=== PATIENT | female | born 1980 | race Caucasian/White ===

== ENCOUNTER 2018-06-03 07:01 | Emergency (ER) | payer BC, SELFPAY ==
[2018-06-03 07:10] VITALS: BP 112/71; PULSE 75; RESP 16; TEMP 37; O2SAT 100
--- NOTE | 2018-06-03 08:17 | W.ED.GENAD ---
Discharge Plan Disposition Patient Disposition: HOME Discharge Details Chief Complaint: DentalOral Clinical Impression: Pain, dental Primary Care Provider: Sultana Oviedo ED Provider: Gerson Porter Home Meds and New Rx's Prescriptions: New penicillin V potassium 500 mg tablet 500 mg PO QID Qty: 27 RF: 0 Continue cholecalciferol (vitamin D3) 2,000 UNIT tablet 4,000 unit PO DAILY RF: 0 syringe with cannula,disposabl [BD Blunt Plastic Cannula] 1 EACH syringe 1 ea Miscellaneous q2wk Qty: 8 RF: 3 rituximab [Rituxan] 10 MG/1 ML concentrate 10 mg IV DIRECTED RF: 0 cyanocobalamin (vitamin B-12) 1,000 MCG/1 ML solution 1,000 mcg IJ twice a month Qty: 6 RF: 3 escitalopram oxalate [Lexapro] 20 MG tablet 20 mg PO DAILY Qty: 90 RF: 3 ferrous sulfate [iron] 325 MG tablet 325 mg PO DAILY RF: 0 multivitamin 1 EACH tablet 1 tab PO DAILY RF: 0 Discharge Instructions Instructions: Toothache (ED) Additional Instructions: Please take antibiotic as prescribed. Tylenol 650 mg every 6 hours as needed for pain. Take ibuprofen 600 mg every 6 hours as needed for pain. Please follow-up with your dentist. Return to the ER for any worsening or new concerning symptoms. Medical Decision Making 37-year-old female here with right molar dental pain. No signs of abscess. Plan to treat with penicillin. I offered periapical dental block and patient declined. I advised her to take Tylenol and ibuprofen and discussed dosing with her. I encouraged her to follow-up with her dentist. HPI General Mode of arrival: ambulatory. Date/Time Provider Initiated Documentation: 06/03/18 07:59. Limitations to Documentation: no limitations. Information obtained by: patient. HPI Narrative: 37-year-old female here with toothache. Patient notes that she had some discomfort in her right lower tooth approximately 2 weeks ago and was seen by her dentist who performed a minor procedure on the tooth. She notes that it was doing well and that yesterday she developed a throbbing ache in the tooth. Pain was severe last night. Pain improved now. She did take ibuprofen. No associated fever or facial swelling. Related Data Home Medications Medication Instructions Recorded Confirmed ferrous sulfate [iron] 325 mg PO DAILY 04/07/17 06/03/18 multivitamin 1 tab PO DAILY 04/07/17 06/03/18 cholecalciferol (vitamin D3) 4,000 unit PO DAILY 07/15/17 06/03/18 syringe with cannula,disposabl [BD #8 syringe 09/02/17 Blunt Plastic Cannula] cyanocobalamin (vitamin B-12) 1,000 mcg IJ twice a month #6 vial 09/03/17 06/03/18 escitalopram oxalate [Lexapro] 20 mg PO DAILY #90 tab-cap 09/03/17 06/03/18 rituximab [Rituxan] 10 mg IV DIRECTED vial 09/03/17 penicillin V potassium 500 mg PO QID #27 tab 06/03/18 Previous Rx's Medication Instructions Recorded cyanocobalamin (vitamin B-12) 1,000 mcg IJ twice a month #6 vial 09/03/17 escitalopram oxalate [Lexapro] 20 mg PO DAILY #90 tab-cap 09/03/17 penicillin V potassium 500 mg PO QID #27 tab 06/03/18 Allergies Allergy/AdvReac Type Severity Reaction Status Date / Time metronidazole [From Flagyl] Allergy Unknown Unverified 06/03/18 07:14 General Stated Complaint: DentalOral JUSTUS: 4 Review of Systems Constitutional Denies fever(s) ENT Reports as per HPI PFSH Family History Sister MS (multiple sclerosis) Mother Essential hypertension H/O partial thyroidectomy Maternal Grandmother Neoplasm Father Arthritis Medical History MS (multiple sclerosis) Social History Smoking/Tobacco Use Status: Never Surgical History section Ligation of fallopian tube (03/01/08) Exam HENMT Face and sinus: normal facial exam Mouth: oral mucosae normal, tongue normal, oropharynx normal and moist mucous membranes Teeth and gingiva: other (Right lower molar with intact filling, no swelling along the gumline, no signs of inflammation) Throat: posterior oropharynx normal Cardio Rate: regular rate Rhythm: regular rhythm Heart Sounds: no murmurs Course Vital Signs Temperature 37 C 06/03/18 07:10 Pulse 75 06/03/18 07:10 Respiratory Rate 16 06/03/18 07:10 Blood Pressure 112/71 06/03/18 07:10 Pulse Oximetry 100 06/03/18 07:10 Temperature 37 C 06/03/18 07:10 Temperature Source Skin 06/03/18 07:10 Pulse 75 06/03/18 07:10 Respiratory Rate 16 06/03/18 07:10 Respiratory Effort 06/03/18 07:12 Blood Pressure 112/71 06/03/18 07:10 Blood Pressure Position Sitting 06/03/18 07:10 Pulse Oximetry 100 06/03/18 07:10 Oxygen Delivery Method Room Air 06/03/18 07:10 Oxygen Flow Rate 0 06/03/18 07:10 Pain Level 7 06/03/18 07:10
[2018-06-03] MEDS: Penicillin V POTASSIUM 500 MG TAB PO (08:21)
[2018-06-03] MEDS: Acetaminophen 325 MG TAB 650 MG PO (08:21)
--- NOTE | 2018-06-03 08:24 | ED.GENADUL_ITS ---
Discharge Plan Disposition Patient Disposition: HOME Discharge Details Chief Complaint: DentalOral Clinical Impression: Pain, dental Primary Care Provider: Sultana Ovideo ED Provider: Gerson Porter Home Meds and New Rx's Prescriptions: New penicillin V potassium 500 mg tablet 500 mg PO QID Qty: 27 RF: 0 Continue cholecalciferol (vitamin D3) 2,000 UNIT tablet 4,000 unit PO DAILY RF: 0 syringe with cannula,disposabl [BD Blunt Plastic Cannula] 1 EACH syringe 1 ea Miscellaneous q2wk Qty: 8 RF: 3 rituximab [Rituxan] 10 MG/1 ML concentrate 10 mg IV DIRECTED RF: 0 cyanocobalamin (vitamin B-12) 1,000 MCG/1 ML solution 1,000 mcg IJ twice a month Qty: 6 RF: 3 escitalopram oxalate [Lexapro] 20 MG tablet 20 mg PO DAILY Qty: 90 RF: 3 ferrous sulfate [iron] 325 MG tablet 325 mg PO DAILY RF: 0 multivitamin 1 EACH tablet 1 tab PO DAILY RF: 0 Discharge Instructions Instructions: Toothache (ED) Additional Instructions: Please take antibiotic as prescribed. Tylenol 650 mg every 6 hours as needed for pain. Take ibuprofen 600 mg every 6 hours as needed for pain. Please follow-up with your dentist. Return to the ER for any worsening or new concerning symptoms. Medical Decision Making 37-year-old female here with right molar dental pain. No signs of abscess. Plan to treat with penicillin. I offered periapical dental block and patient declined. I advised her to take Tylenol and ibuprofen and discussed dosing with her. I encouraged her to follow-up with her dentist. HPI General Mode of arrival: ambulatory . Date/Time Provider Initiated Documentation: 06/03/18 07:59 . Limitations to Documentation: no limitations . Information obtained by: patient . HPI Narrative: 37-year-old female here with toothache. Patient notes that she had some discomfort in her right lower tooth approximately 2 weeks ago and was seen by her dentist who performed a minor procedure on the tooth. She notes that it was doing well and that yesterday she developed a throbbing ache in the tooth. Pain was severe last night. Pain improved now. She did take ibuprofen. No associated fever or facial swelling. Related Data Home Medications Medication Instructions Recorded Confirmed ferrous sulfate [iron] 325 mg PO DAILY 04/07/17 06/03/18 multivitamin 1 tab PO DAILY 04/07/17 06/03/18 cholecalciferol (vitamin D3) 4,000 unit PO DAILY 07/15/17 06/03/18 syringe with cannula,disposabl [BD #8 syringe 09/02/17 Blunt Plastic Cannula] cyanocobalamin (vitamin B-12) 1,000 mcg IJ twice a month #6 vial 09/03/17 escitalopram oxalate [Lexapro] 20 mg PO DAILY #90 tab-cap 09/03/17 06/03/18 rituximab [Rituxan] 10 mg IV DIRECTED vial 09/03/17 penicillin V potassium 500 mg PO QID #27 tab 06/03/18 Previous Rx's Medication Instructions Recorded cyanocobalamin (vitamin B-12) 1,000 mcg IJ twice a month #6 vial 09/03/17 escitalopram oxalate [Lexapro] 20 mg PO DAILY #90 tab-cap 09/03/17 penicillin V potassium 500 mg PO QID #27 tab 06/03/18 Allergies Allergy/AdvReac Type Severity Reaction Status Date / Time metronidazole [From Flagyl] Allergy Unknown Unverified 06/03/18 07:14 General Stated Complaint: DentalOral JUSTUS: 4 Review of Systems Constitutional Denies fever(s) ENT Reports as per HPI PFSH Family History Sister MS (multiple sclerosis) Mother Essential hypertension H/O partial thyroidectomy Maternal Grandmother Neoplasm Father Arthritis Medical History MS (multiple sclerosis) Social History Smoking/Tobacco Use Status: Never Surgical History section Ligation of fallopian tube (03/01/08) Exam HENMT Face and sinus: normal facial exam Mouth: oral mucosae normal, tongue normal, oropharynx normal and moist mucous membranes Teeth and gingiva: other (Right lower molar with intact filling, no swelling along the gumline, no signs of inflammation) Throat: posterior oropharynx normal Cardio Rate: regular rate Rhythm: regular rhythm Heart Sounds: no murmurs Course Vital Signs Temperature 37 C 06/03/18 07:10 Pulse 75 06/03/18 07:10 Respiratory Rate 16 06/03/18 07:10 Blood Pressure 112/71 06/03/18 07:10 Pulse Oximetry 100 06/03/18 07:10 Temperature 37 C 06/03/18 07:10 Temperature Source Skin 06/03/18 07:10 Pulse 75 06/03/18 07:10 Respiratory Rate 16 06/03/18 07:10 Respiratory Effort 06/03/18 07:12 Blood Pressure 112/71 06/03/18 07:10 Blood Pressure Position Sitting 06/03/18 07:10 Pulse Oximetry 100 06/03/18 07:10 Oxygen Delivery Method Room Air 06/03/18 07:10 Oxygen Flow Rate 0 06/03/18 07:10 Pain Level 7 06/03/18 07:10
[2018-06-03 08:27] VITALS: BP 114/71; PULSE 72; RESP 16; TEMP 37; O2SAT 99
== END 2018-06-03 08:28 | disposition home or self-care (01) ==
PROVIDERS: Emergency Provider Student in an Organized Health Care Education/Training Program; PCP Nurse Practitioner
DX: R68.84 Jaw pain (principal); G35 Multiple sclerosis
CPT/HCPCS: 99283

== ENCOUNTER 2018-06-05 01:23 | Outpatient (RCR) | payer BC, SELFPAY ==
[2018-06-05] MEDS: Acetaminophen 325 MG TAB 650 MG PO (07:16)
[2018-06-05] MEDS: Dexamethasone 10 MG/ML VIAL IVP (07:17)
[2018-06-05] MEDS: diphenhydrAMINE 50 MG/ML VIAL IV (07:17)
[2018-06-05 07:50] VITALS: BP 130/80; PULSE 81; RESP 18; TEMP 36.3; O2SAT 97
[2018-06-05] MEDS: Normal Saline Flush 10 ML SYR IVP (07:50)
[2018-06-05 08:30] VITALS: BP 106/69; PULSE 73; RESP 18; TEMP 36.5; O2SAT 98
[2018-06-05 09:00] VITALS: BP 110/78; PULSE 75; RESP 18; TEMP 36.3; O2SAT 98
[2018-06-05 09:45] VITALS: BP 99/67; PULSE 58; RESP 18; TEMP 36.5; O2SAT 99
[2018-06-05 10:26] VITALS: BP 102/72; PULSE 67; RESP 18; TEMP 36.1; O2SAT 97
== END 2018-06-10 23:59 | disposition home or self-care (01) ==
LOC: INF 01:23
PROVIDERS: PCP Nurse Practitioner; Visit Provider Psychiatry & Neurology Neurology
DX: G35 Multiple sclerosis (principal); Z79.899 Other long term (current) drug therapy
CPT/HCPCS: 96365; 96366; J1100; J1200; J9310

== ENCOUNTER 2018-07-30 01:15 | Outpatient (CLI) | payer BC, SELFPAY ==
[2018-07-30 08:02] LABS: Abs Immature Grans 0.01 k/cumm (0.0-0.09); Absolute Basophil Count 0.04 k/cumm (0.0-0.2); Absolute Eosinophil Count 0.16 k/cumm (0.0-0.7); Absolute Lymphocyte Count 0.98 k/cumm (1.2-3.4); Absolute Monocyte Count 0.62 k/cumm (0.11-0.7); Absolute Neutrophil Count 3.96 k/cumm (1.2-6.7); Basophils % 0.7; Eosinophils % 2.8; HCT 40.4 % (36.0-46.0); HGB 13.6 g/dL (12.0-15.5); Immature Grans % 0.2; Mean Corp. HGB Concentration 33.7 g/dL (32.0-36.0); Mean Corpuscular Hemoglobin 30.2 pg (27.0-33.0); Mean Corpuscular Volume 89.6 fL (80-95); Mean Platelet Volume 9.1 fL (8.0-11.0); Monocytes % 10.7; Neutrophils % 68.6; Platelet Count 249 x1000/uL (130-400); RBC 4.51 m/cumm (4.00-5.20); RBC Distribution Width 13.1 % (11.7-14.6); White Blood Cell Count 5.77 k/cumm (4.4-10.8)
[2018-07-30] MEDS: Gadoterate meglumine 20 ML VIAL 12 ML IVP (09:12)
[2018-07-30 09:32] LABS: ALT 23 U/L (12-78); AST 17 U/L (15-37); Alkaline Phosphatase 45 U/L (46-116); Bilirubin, Direct 0.18 mg/dL (0.00-0.20); Bilirubin, Total 0.6 mg/dL (0.2-1.0); Total Protein 7.1 g/dL (6.4-8.2)
--- NOTE | 2018-07-30 09:39 | DI.MRI_ITS ---
SYMPTOM/DIAGNOSIS: MULTIPLE SCLEROSIS, G35, SERIAL EVAL FOR INTERVAL NEW LESIONS BRAIN MRI: The study was conducted according to the usual protocol. The examination is compared with previous examination of 05/22/2017. Again noted are the numerable regions of increased signal in the frontal parietal white matter. No new lesions are identified. No regions of contrast enhancement are suggested. There is no evidence of an intra or extra axial hemorrhage, mass, fluid collection or infarct. The ventricles are intact. The midline is preserved. No posterior fossa abnormality is demonstrated. SUMMARY: No significant interval change when compared with the prior examination of 05/22/2017 with no new lesions identified. No active lesions are demonstrated on today's examination.
--- NOTE | 2018-07-30 09:40 | DI.MRI_ITS ---
SYMPTOM/DIAGNOSIS: MULTIPLE SCLEROSIS G35, SERIAL EVAL FOR INTERVAL NEW LESIONS MRI CERVICAL SPINE: A without and with contrast enhanced examination was carried out according to the usual protocol for work up of multiple sclerosis. Note is made of straightening of the normal cervical lordosis. There is increased signal in the body of C7 which could represent an hemangioma or conceivably a fatty arrest. There is otherwise no bony signal abnormality. There are numerous regions of increased signal involving the cervical spine at the level of T1, C2 through T2. These regions are certainly consistent with a demyelinating process. The contrast enhanced examination does not reveal contrast enhancement at the level of the abnormalities in the cord. Note is made of degenerative change throughout the C-spine most advanced at C5, C6 and C6 C7 where there is posterior spurring and what appears to represent a right central disc herniation at C6-C7. There is no evidence of foraminal compromise. There are degenerative changes involving the facet joints. Also at C5, C6 there is a small central disc protrusion with effacement of the subarachnoid space anterior to the cord. There is no apparent significant foraminal stenosis at this level. SUMMARY: Findings entirely consistent with a demyelinating process and multiple sclerosis. No enhancing lesion or lesions are demonstrated. There are degenerative changes involving the spine most notably at C5, C6 and C6, C7. In addition, there is increased signal in the body of C7 most likely representing an hemangioma.
[2018-07-31 09:53] LABS: IgG 1083 mg/dL (610-1616)
[2018-07-31 10:00] LABS: IgA 134 mg/dL (85-499); IgM 103 mg/dL (35-242)
[2018-07-31 12:58] LABS: CD19 <1 %; CD20 <1 %
== END 2018-07-30 01:35 ==
PROVIDERS: PCP Nurse Practitioner; Visit Provider Psychiatry & Neurology Neurology
DX: G35 Multiple sclerosis (principal); M50.322 Other cervical disc degeneration at C5-C6 level; M50.223 Other cervical disc displacement at C6-C7 level
CPT/HCPCS: 36415; 70553; 80076; 82784; 88184; 88185; 72156; 85025

== ENCOUNTER 2018-10-09 09:36 | Outpatient (CLI) | payer BC, SELFPAY ==
[2018-10-09 11:37] LABS: Vitamin B12 1151 pg/mL (193-986)
== END 2018-10-09 09:56 ==
PROVIDERS: PCP Nurse Practitioner; Visit Provider Nurse Practitioner
DX: E53.8 Deficiency of other specified B group vitamins (principal)
CPT/HCPCS: 36415; 82607

== ENCOUNTER 2018-11-10 12:10 | Outpatient (CLI) | payer BC, SELFPAY ==
[2018-11-10 12:43] LABS: Abs Immature Grans 0.01 k/cumm (0.0-0.09); Absolute Basophil Count 0.04 k/cumm (0.0-0.2); Absolute Lymphocyte Count 1.08 k/cumm (1.2-3.4); Absolute Monocyte Count 0.52 k/cumm (0.11-0.7); Absolute Neutrophil Count 3.25 k/cumm (1.2-6.7); Basophils % 0.8; HCT 38.2 % (36.0-46.0); HGB 12.7 g/dL (12.0-15.5); Immature Grans % 0.2; Lymphocytes % 21.6; Mean Corp. HGB Concentration 33.2 g/dL (32.0-36.0); Mean Corpuscular Hemoglobin 29.9 pg (27.0-33.0); Mean Corpuscular Volume 89.9 fL (80-95); Mean Platelet Volume 9.6 fL (8.0-11.0); Monocytes % 10.4; Platelet Count 215 x1000/uL (130-400); RBC 4.25 m/cumm (4.00-5.20); RBC Distribution Width 12.8 % (11.7-14.6)
[2018-11-10 13:14] LABS: Bilirubin Negative (Negative); Blood Negative (Negative); Clarity Sl Cloudy; Glucose Negative (Negative); Ketones Negative (Negative); Leukocyte Esterase Negative (Negative); Nitrite Negative (Negative)
[2018-11-10 15:04] LABS: ALT 28 U/L (12-78); AST 22 U/L (15-37); Albumin 3.9 g/dL (3.4-5.0); Alkaline Phosphatase 54 U/L (46-116); Bilirubin, Total 0.4 mg/dL (0.2-1.0); Total Protein 6.9 g/dL (6.4-8.2)
[2018-11-10 15:29] LABS: Bilirubin, Direct 0.13 mg/dL (0.00-0.20)
[2018-11-11 10:25] LABS: IgA 123 mg/dL (85-499); IgG 1010 mg/dL (610-1616); IgM 87 mg/dL (35-242)
[2018-11-12 11:56] LABS: CD19 <1 %; CD20 <1 %
== END 2018-11-10 12:30 ==
PROVIDERS: PCP Nurse Practitioner; Visit Provider Psychiatry & Neurology Neurology
DX: G35 Multiple sclerosis (principal)
CPT/HCPCS: 36415; 80076; 82784; 88184; 88185; 81003; 85025

== ENCOUNTER 2018-11-11 04:17 | Outpatient (RCR) | payer BC, SELFPAY ==
[2018-11-11 07:35] VITALS: BP 100/52; PULSE 65; RESP 18; TEMP 36.6; O2SAT 98
[2018-11-11] MEDS: diphenhydrAMINE 50 MG/ML VIAL IV (07:36)
[2018-11-11] MEDS: Dexamethasone 10 MG/ML VIAL IVP (07:37)
[2018-11-11] MEDS: Normal Saline Flush 10 ML SYR IVP (07:38)
[2018-11-11] MEDS: Acetaminophen 325 MG TAB 650 MG PO (07:38)
[2018-11-11 08:04] VITALS: BP 112/76; PULSE 95; RESP 16; TEMP 36.6; O2SAT 100
[2018-11-11 08:20] VITALS: BP 102/68; PULSE 92; RESP 18; TEMP 37; O2SAT 100
[2018-11-11 08:41] VITALS: BP 97/62; PULSE 90; RESP 18; TEMP 36.5; O2SAT 99
[2018-11-11 09:10] VITALS: BP 92/58; PULSE 84; RESP 18; TEMP 36.5; O2SAT 98
[2018-11-11 09:40] VITALS: BP 96/63; PULSE 77; RESP 18; TEMP 37; O2SAT 98
== END 2018-12-08 23:59 | disposition home or self-care (01) ==
LOC: INF 04:17
PROVIDERS: PCP Nurse Practitioner; Visit Provider Psychiatry & Neurology Neurology
DX: G35 Multiple sclerosis (principal)
CPT/HCPCS: 96365; 96366; J1100; J1200; J9312

== ENCOUNTER 2019-01-01 00:32 | Outpatient (CLI) | payer BC, SELFPAY ==
--- NOTE | 2019-01-01 07:50 | DI.MRI_ITS ---
SYMPTOM/DIAGNOSIS: DIFFICULTLY WALKING, MS, ? PROGRESSION, WORSENING BALANCE,G35 BRAIN MRI: Comparison is made with 07/30/18. T 2 and FLAIR sagittal, T 1, T 2, FLAIR, diffusion and gradient echo axial and post Dotarem T 1 axial and coronal sequences were performed. Again noted are numerous foci of abnormal high signal in the white matter of both cerebral hemispheres consistent with patient's history of multiple sclerosis. The appearance appears stable from the previous exam. No enhancing lesions are identified. There are no areas of restricted diffusion. The ventricles are unchanged in size. The orbits, sinuses, pituitary and mastoid air cells are unremarkable. IMPRESSION: Stable appearance of white matter lesions consistent with multiple sclerosis. CERVICAL SPINE MRI: Comparison is made with 07/30/18. T 1, T 2, STIR, FLAIR and T 2 3D sagittal, T 1 and gradient echo axial and post Dotarem T 1 axial and sagittal sequences were performed. The sagittal images include from the brain stem to T 5. There are innumerable abnormal areas of high signal throughout the visualized portions of the cervical cord as well as upper thoracic cord. No enhancing lesions are identified. Straightening of the normal cervical lordosis and posterior disc bulges are again noted from C 3-4 through C 6-7. A hemangioma is again noted in C 7. IMPRESSION: Stable appearance of numerous abnormal high signal foci in the cervical cord consistent with the patient's history of multiple sclerosis. No enhancing lesions are seen.
[2019-01-01] MEDS: Normal Saline Flush 10 ML SYR IVP (09:06)
[2019-01-01] MEDS: Gadoterate meglumine 20 ML VIAL 11 ML IVP (09:07)
== END 2019-01-01 00:52 ==
PROVIDERS: PCP Nurse Practitioner; Visit Provider Psychiatry & Neurology Neurology
DX: G35 Multiple sclerosis (principal); R26.2 Difficulty in walking, not elsewhere classified
CPT/HCPCS: 70553; 72156

== ENCOUNTER 2019-04-29 15:17 | Outpatient (CLI) | payer BC, SELFPAY ==
[2019-04-29 15:54] LABS: Absolute Basophil Count 0.04 k/cumm (0.0-0.2); Absolute Eosinophil Count 0.06 k/cumm (0.0-0.7); Absolute Lymphocyte Count 1.24 k/cumm (1.2-3.4); Absolute Monocyte Count 0.49 k/cumm (0.11-0.7); Basophils % 0.7; Eosinophils % 1.1; HCT 37.3 % (36.0-46.0); HGB 12.4 g/dL (12.0-15.5); Lymphocytes % 22.8; Mean Corp. HGB Concentration 33.2 g/dL (32.0-36.0); Mean Corpuscular Hemoglobin 29.2 pg (27.0-33.0); Neutrophils % 66.4; Platelet Count 287 x1000/uL (130-400); RBC 4.24 m/cumm (4.00-5.20); RBC Distribution Width 12.6 % (11.7-14.6); White Blood Cell Count 5.43 k/cumm (4.4-10.8)
[2019-04-29 16:23] LABS: Bilirubin Small (Negative); Blood Negative (Negative); Clarity Clear (Clear); Glucose Negative (Negative); Ketones 15 mg/dL (Negative); Leukocyte Esterase Negative (Negative); Nitrite Negative (Negative); Specific Gravity 1.025 (1.005-1.025); Urobilinogen 0.2 EU/dL (Up TO 0.2)
[2019-04-29 16:37] LABS: ALT 17 U/L (14-59); AST 16 U/L (15-37); Alkaline Phosphatase 51 U/L (46-116); Bilirubin, Direct 0.14 mg/dL (0.00-0.20); Bilirubin, Total 0.6 mg/dL (0.2-1.0); Total Protein 6.9 g/dL (6.4-8.2)
[2019-04-29 17:01] LABS: Epithelial Cells Moderate HPF (Negative); RBC Negative (0-2); WBC Negative HPF (0-5)
[2019-04-29 17:02] LABS: Bacteria Few HPF (Negative); C & S Indicated? No/Sq. Contamination; Casts Negative LPF (Negative); Crystals Negative HPF (Negative); Mucus Heavy (Negative); Other Cells Negative (Negative)
[2019-04-30 11:05] LABS: IgA 127 mg/dL (85-499); IgG 988 mg/dL (610-1616); IgM 22 mg/dL (35-242)
[2019-05-03 14:35] LABS: CD19 <1 %; CD20 <1 %
== END 2019-04-29 15:37 ==
PROVIDERS: PCP Nurse Practitioner; Visit Provider Psychiatry & Neurology Neurology
DX: G35 Multiple sclerosis (principal)
CPT/HCPCS: 36415; 80076; 82784; 88184; 88185; 81003; 81015; 85025

== ENCOUNTER 2019-05-17 02:02 | Outpatient (RCR) | payer BC, SELFPAY ==
[2019-05-17] VITALS (9 sets, daily range): BP systolic 90–110; BP diastolic 59–77; PULSE 71–96; RESP 17–19; TEMP 35.9–36.7; O2SAT 99–100
[2019-05-17] MEDS: Normal Saline Flush 10 ML SYR IVP (07:05)
[2019-05-17] MEDS: methylPREDNISolone SUCC 125 MG VIAL 100 MG IV (07:05)
[2019-05-17] MEDS: Acetaminophen 325 MG TAB 650 MG PO (07:05)
[2019-05-17] MEDS: diphenhydrAMINE 50 MG/ML VIAL IV (07:05)
== END 2019-06-10 23:59 | disposition home or self-care (01) ==
LOC: INF 02:02
PROVIDERS: PCP Nurse Practitioner; Visit Provider Psychiatry & Neurology Neurology
DX: G35 Multiple sclerosis (principal)
CPT/HCPCS: 96365; 96366; 96374; J1200; J2930; J9312

== ENCOUNTER 2019-08-06 10:49 | Outpatient (CLI) | payer BC, SELFPAY ==
--- NOTE | 2019-08-20 10:56 | DI.US_ITS ---
EXAM: US BREAST RT COMPLETE CLINICAL HISTORY: right breast lump [id number] TECHNIQUE: Ultrasound performed using standard protocol. COMPARISON: No exams were available for comparison FINDINGS: Ultrasound examination of breast was performed to evaluate the palpable area of abnormality of the up per outer quadrant of the right breast, the patient reportedly has history of trauma this area. Ultr asound shows a poorly defined area decreased echogenicity corresponding to the palpable abnormality. This measures roughly 1 cm in greatest diameter. Findings are consistent with resolving hematoma. No abnormal Doppler findings. IMPRESSION: Findings consistent with resolving hematoma in patient with history of trauma to this area. Malignan t mass not absolutely excluded follow-up imaging may be obtained if clinically indicated by an enlarg ing mass.
== END 2019-08-06 11:09 ==
PROVIDERS: PCP Nurse Practitioner; Visit Provider Internal Medicine
DX: N63.11 Unspecified lump in the right breast, upper outer quadrant (principal); S20.01XD Contusion of right breast, subsequent encounter
CPT/HCPCS: 76642

== ENCOUNTER 2019-08-20 18:32 | Outpatient (CLI) | payer BC, SELFPAY | END 2019-08-20 18:52 | PROVIDERS: PCP Nurse Practitioner; Visit Provider Internal Medicine | DX: R69 Illness, unspecified (principal) | CPT/HCPCS: 76642 ==

== ENCOUNTER 2019-10-04 14:03 | Outpatient (REF) | payer BC, SELFPAY ==
--- NOTE | 2019-10-04 09:00 | PAPFT_PTH ---
PATIENT: Gay Montiel LOC: [facility] U#:[id number] AGE/SX: 38/F ROOM: RE10/04/[address]: Sultana Oviedo APRN : 1980 BED: DIS: 10/04/2019 SPEC #: [id number] RECD: 10/04/19 18:44 STATUS: RIVKA REShen #: [id number] MERLINE: 10/04/19 09:[address]: Sultana Oviedo DEPT: [facility] Cytology RECD BY: Frances Hernandez Tissues: 1 - CX/ENDOCX FOR PAP SMEARS Procedures: PAP THIN PREP/UVM Screening HPV DNA PROBE Comments: [id number]
== END 2019-10-04 14:23 ==
LOC: LBN 14:03
PROVIDERS: PCP Nurse Practitioner; Visit Provider Nurse Practitioner
DX: Z12.4 Encounter for screening for malignant neoplasm of cervix (principal)
CPT/HCPCS: 88142; 87624

== ENCOUNTER 2019-10-26 02:19 | Outpatient (CLI) | payer BC, SELFPAY ==
[2019-10-26 11:05] LABS: Absolute Basophil Count 0.03 k/cumm (0.0-0.2); Absolute Eosinophil Count 0.12 k/cumm (0.0-0.7); Absolute Lymphocyte Count 0.81 k/cumm (1.2-3.4); Absolute Neutrophil Count 2.12 k/cumm (1.2-6.7); Basophils % 0.8; Eosinophils % 3.4; HCT 40.1 % (36.0-46.0); HGB 13.2 g/dL (12.0-15.5); Lymphocytes % 22.6; Mean Corp. HGB Concentration 32.9 g/dL (32.0-36.0); Mean Corpuscular Hemoglobin 29.4 pg (27.0-33.0); Mean Corpuscular Volume 89.3 fL (80-95); Mean Platelet Volume 10.5 fL (8.0-11.0); Neutrophils % 59.2; Platelet Count 233 x1000/uL (130-400); RBC 4.49 m/cumm (4.00-5.20); RBC Distribution Width 13.4 % (11.7-14.6); White Blood Cell Count 3.58 k/cumm (4.4-10.8)
[2019-10-26 11:47] LABS: ALT 17 U/L (14-59); AST 16 U/L (15-37); Albumin 3.9 g/dL (3.4-5.0); Alkaline Phosphatase 40 U/L (46-116); Anion Gap 7.6 mmol/L (3-11); BUN 11 mg/dL (7-18); Bilirubin, Total 0.6 mg/dL (0.2-1.0); CO2 29.4 mmol/L (21.0-32.0); CREATININE 0.69 mg/dL (0.55-1.02); Calcium 8.7 mg/dL (8.5-10.1); Chloride 104 mmol/L (98-107); Glucose 79 mg/dL (74-106); Potassium 3.9 mmol/L (3.5-5.1); Sodium 141 mmol/L (136-145); Total Protein 6.8 g/dL (6.4-8.2)
[2019-10-27 10:39] LABS: IgA 124 mg/dL (85-499); IgG 948 mg/dL (610-1,616); IgM 85 mg/dL (35-242)
[2019-10-27 14:43] LABS: CD19 <1 %; CD20 <1 %
== END 2019-10-26 02:39 ==
PROVIDERS: PCP Nurse Practitioner; Visit Provider Psychiatry & Neurology Neurology
DX: G35 Multiple sclerosis (principal)
CPT/HCPCS: 36415; 80053; 82784; 88184; 88185; 85025

== ENCOUNTER 2019-11-18 00:44 | Outpatient (CLI) | payer BC, SELFPAY ==
--- NOTE | 2019-11-18 06:30 | DI.MAMMO_ITS ---
EXAM: US BREAST RT LIMITED and bilateral mammogram CLINICAL HISTORY: RT BREAST LUMP HEMATOMA - TRAUMA 08/30. COMPARISON: US BREAST RT COMPLETE from 08/06/2019 TECHNIQUE: Craniocaudal and mediolateral oblique Full Field Digital Mammography views of the bilater al breast with Computer Aided Diagnosis followed by Tomosynthesis and right breast ultrasound. FINDINGS: Mammography/Tomosynthesis: Masses/Architectural Distortion: None seen. Microcalcifications: No suspicious pleomorphic-type are seen. Skin Thickening/Nipple Retraction: None. Right breast US: Ductal dilation: None. No solid or cystic masses, areas of abnormal shadowing, or areas of skin thickening in the upper righ t breast. There does appear to be interval decrease in size of the hypoechoic area in the right gail st consistent with resolving hematoma. There also appears to be a decrease in the skin thickening pr eviously seen in this region. IMPRESSION: 1. No evidence of malignancy is noted. Overall interval improvement in the presumed hematoma in the r ight breast. BI-RADS Cat 2 - Benign Findings Breast Density - Category C - Heterogeneously dense The mammogram demonstrates the patient's breast tissue is dense. Dense breast tissue is very common a nd is not abnormal but dense breast tissue can make it harder to find cancer on a mammogram. Also, de nse breast tissue may increase their breast cancer risk. This information about the result of the [facility] mogram report was provided to the patient to raise their awareness. Use this report when you speak wi th the patient about their risks for breast cancer, which includes their family history. At that time , you may recommend for more screening tests (Ultrasound or MRI) as they might be useful based on the ir risk. A negative radiographic report should not delay biopsy if a dominant or clinically suspicious mass is present. Up to ten percent of cancers are not identified on mammography. A negative report may reinforce clinical impression. Adenosis and dense breasts may obscure an underlying neoplasm. False positive reports average 6 to 10%. Patient will receive a letter notifying them of these results. Overall improving presumed hematoma in the right breast. No suspicious cystic or solid masses are se en sonographically.
== END 2019-11-18 01:04 ==
PROVIDERS: PCP Nurse Practitioner; Visit Provider Nurse Practitioner
DX: N63.11 Unspecified lump in the right breast, upper outer quadrant (principal); S20.01XD Contusion of right breast, subsequent encounter
CPT/HCPCS: 76642; 77062; 77066; G0279

== ENCOUNTER 2019-11-24 01:28 | Outpatient (RCR) | payer BC, SELFPAY ==
[2019-11-24] VITALS (8 sets, daily range): BP systolic 90–106; BP diastolic 67–76; PULSE 48–107; RESP 18–19; TEMP 35.9–36.7; O2SAT 93–100
[2019-11-24] MEDS: methylPREDNISolone SUCC 125 MG VIAL 100 MG IV (08:30)
[2019-11-24] MEDS: diphenhydrAMINE 50 MG/ML VIAL IV (08:31)
[2019-11-24] MEDS: Acetaminophen 325 MG TAB 650 MG PO (08:31)
[2019-11-24] MEDS: Normal Saline Flush 10 ML SYR IVP (08:31)
== END 2019-12-09 23:59 | disposition home or self-care (01) ==
LOC: INF 01:28
PROVIDERS: PCP Nurse Practitioner; Visit Provider Psychiatry & Neurology Neurology
DX: G35 Multiple sclerosis (principal)
CPT/HCPCS: 96365; 96366; J1200; J2930; J9312

== ENCOUNTER 2020-01-06 02:45 | Outpatient (CLI) | payer BC, SELFPAY ==
--- NOTE | 2020-01-06 08:45 | DI.MRI_ITS ---
EXAM: MR BRAIN WO/W CLINICAL HISTORY: MS.G35. TECHNIQUE: Multiplanar multisequence MRI of the brain was performed. CONTRAST MATERIAL: IV Contrast: 11 ML of Dotarem contrast administered. COMPARISON: MR MR brain wo/w from 01/01/2019 FINDINGS: VENTRICLES AND EXTRA AXIAL SPACES: Normal in size and morphology for the patient's age. HEMORRHAGE: None. CEREBRAL PARENCHYMA: There still of stable innumerable and nearly confluent areas of high signal on T 2 and FLAIR images in the white matter, consistent with the patient's history of multiple sclerosis. No focus of restricted diffusion to suggest acute infarct or active lesion. No space-occupying lesi on identified. MIDLINE SHIFT: None. BRAINSTEM/CEREBELLUM: Normal. CALVARIUM: Normal. ENHANCEMENT: No suspicious enhancement identified. VISUALIZED PARANASAL SINUSES/MASTOIDS: Clear. OTHER FINDINGS: None. IMPRESSION: Stable white matter lesions consistent with the patient's history of multiple sclerosis. No enhancin g lesions are identified.. DATA REPOSITORY:
--- NOTE | 2020-01-06 08:52 | DI.MRI_ITS ---
EXAM: MR CERVICAL SPINE WO/W CLINICAL HISTORY: MS; increased LLE spasticity,G35 TECHNIQUE: Multiplanar multisequence MRI of the cervical spine was performed without intravenous con trast. Additional T1 axial and sagittal sequences were performed following IV infusion of 100 millil iters Dotarem. COMPARISON: MR MR cervical spine wo/w from 01/01/2019 FINDINGS: BONES: Vertebral body heights are maintained. Alignment is normal. Overall bone marrow signal intensi ty is within normal limits. Hemangioma C7. CERVICAL CORD: Craniovertebral junction is unremarkable. Abnormal high signal is again noted througho ut the cervical cord the findings appear grossly unchanged from the previous exam.. No abnormal area s of enhancement are seen. Discs: The intervertebral discs are well maintained in height. There is stable mild posterior disc b ulging from C3-4 through C6-7. There is no focal disc herniation. There is some effacement of the a nterior CSF space at C6-7. There is no significant neural foraminal narrowing. SOFT TISSUES: Unremarkable. IMPRESSION: Grossly stable diffuse high signal throughout the cervical and upper thoracic cord. No enhancing les ions are seen.. DATA REPOSITORY:
[2020-01-06] MEDS: Normal Saline Flush 10 ML SYR IVP (15:04)
[2020-01-06] MEDS: Gadoterate meglumine 20 ML VIAL 11 ML IVP (15:05)
== END 2020-01-06 03:05 ==
PROVIDERS: PCP Nurse Practitioner; Visit Provider Psychiatry & Neurology Neurology
DX: G35 Multiple sclerosis (principal); M62.838 Other muscle spasm
CPT/HCPCS: 70553; 72156

== ENCOUNTER 2020-05-24 08:30 | Outpatient (RCR) | payer BC, SELFPAY ==
[2020-05-24] VITALS (8 sets, daily range): BP systolic 91–113; BP diastolic 59–81; PULSE 85–94; RESP 14–18; TEMP 36–36.6; O2SAT 98–100
[2020-05-24] MEDS: Acetaminophen 325 MG TAB 650 MG PO (08:42)
[2020-05-24] MEDS: methylPREDNISolone SUCC 125 MG VIAL 100 MG IV (08:43)
[2020-05-24] MEDS: diphenhydrAMINE 50 MG/ML VIAL IV (08:43)
[2020-05-24] MEDS: Normal Saline Flush 10 ML SYR IVP (08:44)
[2020-05-24] MEDS: riTUXimab-PVVR 1,000 MG in Normal Saline 150 ML 62.5 MG IVPB (08:55)
[2020-05-24 09:11] LABS: Absolute Eosinophil Count 0.09 10^3/uL (0.0-0.7); Absolute Lymphocyte Count 0.97 10^3/uL (1.2-3.4); Absolute Neutrophil Count 3.12 10^3/uL (1.2-6.7); Basophils % 0.8; Eosinophils % 1.9; HCT 37.4 % (36.0-46.0); HGB 12.1 g/dL (11.2-15.7); Immature Grans % 0.2; Lymphocytes % 20.5; MCH 28.8 pg (27.0-33.0); MCHC 32.4 % (32.0-36.0); MPV 10.2 fL (8.0-11.0); Monocytes % 10.6; Nucleated RBC 0 %; Platelet Count 314 10^3/uL (130-400); RDW 12.5 % (11.7-14.6); WBC 4.73 10^3/uL (4.4-10.8)
[2020-05-24 09:12] LABS: Abs Immature Grans 0.01 10^3/uL (0.0-0.06); Absolute Basophil Count 0.04 10^3/uL (0.0-0.2)
[2020-05-24 10:00] LABS: ALT 13 U/L (14-59); AST 15 U/L (15-37); Albumin 3.8 g/dL (3.4-5.0); Alkaline Phosphatase 39 U/L (46-116); Bilirubin, Direct 0.16 mg/dL (0.00-0.20); Bilirubin, Total 0.6 mg/dL (0.2-1.0); Total Protein 6.8 g/dL (6.4-8.2)
[2020-05-25 09:10] LABS: IgA 118 mg/dL (85-499); IgG 989 mg/dL (610-1,616); IgM 83 mg/dL (35-242)
[2020-05-25 17:27] LABS: CD19 <1 %; CD20 <1 %
== END 2020-06-10 23:59 | disposition home or self-care (01) ==
LOC: INF 08:30
PROVIDERS: PCP Nurse Practitioner; Visit Provider Psychiatry & Neurology Neurology
DX: G35 Multiple sclerosis (principal)
CPT/HCPCS: 36415; 80076; 82784; 88184; 88185; 96365; 96366; 85025; J1200; J2930; Q5119

== ENCOUNTER 2020-09-05 03:32 | Outpatient (CLI) | payer BC, SELFPAY ==
[2020-09-05 12:42] LABS: Bilirubin Negative (Negative); Blood Small (Negative); Clarity Sl Cloudy (Clear); Glucose Negative (Negative); Ketones Negative (Negative); Leukocyte Esterase Negative (Negative); Nitrite Negative (Negative); Specific Gravity >= 1.030 (1.005-1.025); Urobilinogen 0.2 EU/dL (Up TO 0.2)
[2020-09-05 13:05] LABS: Anion Gap 7.3 mmol/L (3-11); BUN 11 mg/dL (7-18); C-Reactive Protein < 0.05 mg/dL (0.0-0.3); CO2 28.7 mmol/L (21.0-32.0); Calcium 9.2 mg/dL (8.5-10.1); Chloride 101 mmol/L (98-107); Glucose 95 mg/dL (74-106); Potassium 3.9 mmol/L (3.5-5.1); Sodium 137 mmol/L (136-145)
[2020-09-05 13:13] LABS: Epithelial Cells Moderate HPF (Negative); RBC 0-2 HPF (0-2); WBC 0-2 HPF (0-5)
[2020-09-05 13:14] LABS: C & S Indicated? No/Sq. Contamination; Casts Negative LPF (Negative); Crystals Negative HPF (Negative); Mucus Moderate (Negative)
[2020-09-05 14:14] LABS: ESR 6 mm/hr (0-20)
== END 2020-09-05 03:52 ==
PROVIDERS: PCP Nurse Practitioner; Visit Provider Psychiatry & Neurology Neurology
DX: G35 Multiple sclerosis (principal)
CPT/HCPCS: 36415; 80048; 85652; 81003; 81015; 86140

== ENCOUNTER 2020-11-24 01:00 | Outpatient (CLI) | payer BC, SELFPAY ==
[2020-11-24 12:31] LABS: Abs Immature Grans 0.01 10^3/uL (0.0-0.06); Absolute Basophil Count 0.06 10^3/uL (0.0-0.2); Absolute Eosinophil Count 0.12 10^3/uL (0.0-0.7); Absolute Lymphocyte Count 1.02 10^3/uL (1.2-3.4); Absolute Monocyte Count 0.47 10^3/uL (0.1-0.8); Absolute Neutrophil Count 2.23 10^3/uL (1.2-6.7); Basophils % 1.5; Eosinophils % 3.1; HCT 37.6 % (36.0-46.0); Immature Grans % 0.3; Lymphocytes % 26.1; MCH 28.4 pg (27.0-33.0); MCHC 31.9 % (32.0-36.0); MCV 89.1 fL (80-95); MPV 10.3 fL (8.0-11.0); Nucleated RBC 0 %; Platelet Count 305 10^3/uL (130-400); RBC 4.22 10^6/uL (3.93-5.22); RDW 12.7 % (11.7-14.6); RDW-SD 41.1 fL; WBC 3.91 10^3/uL (4.4-10.8)
[2020-11-24 13:09] LABS: ALT 19 U/L (14-59); AST 17 U/L (15-37); Albumin 3.8 g/dL (3.4-5.0); Alkaline Phosphatase 49 U/L (46-116); Bilirubin, Total 0.4 mg/dL (0.2-1.0); Calculated LDL 104 mg/dL (<100); Cholesterol 185 mg/dL (<200); HDL Cholesterol 67 mg/dL (40-60); Total Protein 6.7 g/dL (6.4-8.2); Triglyceride 74 mg/dL (<150)
[2020-11-24 13:19] LABS: Bilirubin, Direct 0.1 mg/dL (0.0-0.2)
[2020-11-26 11:30] LABS: CD19 <1 %; CD20 <1 %
[2020-11-27 10:13] LABS: IgA 109 mg/dL (85-499); IgG 870 mg/dL (610-1,616); IgM 78 mg/dL (35-242)
== END 2020-11-24 01:01 | disposition home or self-care (01) ==
LOC: LOS 01:00
PROVIDERS: PCP Nurse Practitioner; Visit Provider Nurse Practitioner
DX: G35 Multiple sclerosis (principal); Z13.220 Encounter for screening for lipoid disorders
CPT/HCPCS: 36415; 80061; 80076; 82784; 88184; 88185; 85025

== ENCOUNTER 2021-05-08 03:56 | Outpatient (CLI) | payer BC, SELFPAY ==
[2021-05-08 08:47] LABS: Abs Immature Grans 0.01 10^3/uL (0.0-0.06); Absolute Basophil Count 0.05 10^3/uL (0.0-0.2); Absolute Eosinophil Count 0.14 10^3/uL (0.0-0.7); Absolute Monocyte Count 0.45 10^3/uL (0.1-0.8); Absolute Neutrophil Count 2.68 10^3/uL (1.2-6.7); Basophils % 1.1; Eosinophils % 3.2; HCT 37.9 % (36.0-46.0); HGB 11.8 g/dL (11.2-15.7); Immature Grans % 0.2; Lymphocytes % 24.8; MCH 27.3 pg (27.0-33.0); MCHC 31.1 % (32.0-36.0); MCV 87.5 fL (80-95); MPV 9.8 fL (8.0-11.0); Monocytes % 10.2; Neutrophils % 60.5; Nucleated RBC 0 %; Platelet Count 329 10^3/uL (130-400); RBC 4.33 10^6/uL (3.93-5.22); RDW 13.3 % (11.7-14.6); RDW-SD 42.5 fL; WBC 4.43 10^3/uL (4.4-10.8)
[2021-05-08 09:10] LABS: ALT 18 U/L (14-59); AST 14 U/L (15-37); Albumin 3.9 g/dL (3.4-5.0); Alkaline Phosphatase 45 U/L (46-116); Bilirubin, Direct 0.2 mg/dL (0.0-0.2); Bilirubin, Total 0.4 mg/dL (0.2-1.0); Total Protein 6.8 g/dL (6.4-8.2)
[2021-05-09 10:12] LABS: IgA 124 mg/dL (85-499); IgG 988 mg/dL (610-1,616); IgM 81 mg/dL (35-242)
== END 2021-05-08 03:57 | disposition home or self-care (01) ==
LOC: LBO 03:56
PROVIDERS: PCP Nurse Practitioner; Visit Provider Psychiatry & Neurology Neurology
DX: G35 Multiple sclerosis (principal)
CPT/HCPCS: 36415; 80076; 82784; 88184; 88185; 85025

== ENCOUNTER 2021-05-10 04:03 | Outpatient (CLI) | payer BC, SELFPAY ==
[2021-05-14 12:25] LABS: CD19 <1 % (6-24); CD20 <1 % (6-24)
== END 2021-05-10 04:04 | disposition home or self-care (01) ==
LOC: LBO 04:03
PROVIDERS: PCP Nurse Practitioner; Visit Provider Psychiatry & Neurology Neurology
DX: G35 Multiple sclerosis (principal)
CPT/HCPCS: 88184; 88185

== ENCOUNTER 2021-12-13 03:58 | Outpatient (CLI) | payer BC, SELFPAY ==
[2021-12-13 11:20] LABS: Abs Immature Grans 0.02 10^3/uL (0.0-0.06); Absolute Basophil Count 0.08 10^3/uL (0.0-0.2); Absolute Eosinophil Count 0.29 10^3/uL (0.0-0.7); Absolute Lymphocyte Count 1.02 10^3/uL (1.2-3.4); Absolute Monocyte Count 0.77 10^3/uL (0.1-0.8); Absolute Neutrophil Count 4.93 10^3/uL (1.2-6.7); Basophils % 1.1; Eosinophils % 4.1; HCT 37.6 % (36.0-46.0); HGB 11.6 g/dL (11.2-15.7); Immature Grans % 0.3; Lymphocytes % 14.3; MCH 25.2 pg (27.0-33.0); MCHC 30.9 % (32.0-36.0); MCV 82 fL (80-95); MPV 9.3 fL (8.0-11.0); Monocytes % 10.8; Neutrophils % 69.4; Platelet Count 264 10^3/uL (130-400); RDW 13.5 % (11.7-14.6); RDW-SD 40.2 fL; WBC 7.11 10^3/uL (4.4-10.8)
[2021-12-13 12:17] LABS: ALT 15 U/L (14-59); AST 17 U/L (15-37); Albumin 4.4 g/dL (3.4-5.0); Alkaline Phosphatase 56 U/L (46-116); Bilirubin, Direct 0.1 mg/dL (0.0-0.2); Bilirubin, Total 0.4 mg/dL (0.2-1.0); Total Protein 7.5 g/dL (6.4-8.2)
[2021-12-13 12:20] LABS: ALT 15 U/L (14-59); AST 14 U/L (15-37); Albumin 4.4 g/dL (3.4-5.0); Alkaline Phosphatase 55 U/L (46-116); Anion Gap 8.9 mmol/L (3-11); BUN 10 mg/dL (7-18); Bilirubin, Total 0.4 mg/dL (0.2-1.0); CO2 28.1 mmol/L (21.0-32.0); CREATININE 0.7 mg/dL (0.55-1.02); Calcium 8.9 mg/dL (8.5-10.1); Calculated LDL 115 mg/dL (<100); Chloride 102 mmol/L (98-107); Cholesterol 206 mg/dL (<200); Glucose 83 mg/dL (74-106); HDL Cholesterol 72 mg/dL (40-60); Potassium 3.8 mmol/L (3.5-5.1); Sodium 139 mmol/L (136-145); Total Protein 7.5 g/dL (6.4-8.2); Triglyceride 95 mg/dL (<150)
[2021-12-14 09:20] LABS: IgA 118 mg/dL (85-499); IgG 1011 mg/dL (610-1,616); IgM 87 mg/dL (35-242)
[2021-12-14 15:25] LABS: CD19 <1 % (6-24); CD20 <1 % (6-24)
== END 2021-12-13 03:59 | disposition home or self-care (01) ==
LOC: LBO 03:58
PROVIDERS: PCP Nurse Practitioner; Visit Provider Psychiatry & Neurology Neurology
DX: G35 Multiple sclerosis (principal); Z13.220 Encounter for screening for lipoid disorders
CPT/HCPCS: 36415; 80053; 80061; 80076; 82784; 88184; 88185; 85025

== ENCOUNTER → 2021-12-14 01:17 | Outpatient (CLI) | payer BC, SELFPAY ==
--- NOTE | 2021-12-14 07:45 | DI.MAMMO_ITS ---
Exam(s) MAMMO SCREENING EXAM: MAMMO SCREENING CLINICAL HISTORY: screening,Z12.39. TECHNIQUE: Bilateral full field digital CC and MLO mammographic images were obtained with 3D tomosyn thesis and utilizing computer aided detection (CAD). COMPARISON: Prior mammogram of November 2019 was reviewed. FINDINGS: There are no CAD designations There are no new significant radiograph findings in left breast. However, there is significant increase in abnormal asymmetric density in the superior aspect of the r ight breast, measuring approximately 5 by 4 by 6 cm. There are no malignant-appearing microcalcification groups in this region or elsewhere in either gail st. No new obvious architectural distortion skin thickening traction. IMPRESSION: 1. No radiographic evidence of malignancy in left breast. 2. Abnormal right breast findings with increasing size density superiorly as described above. Additi onal imaging is recommended including spot compression views and complete breast ultrasound. BI-RADS Category 0 - Assessment Incomplete: Need additional imaging evaluation Breast Density - Category C - Heterogeneously dense Breast density Category C or D implies that the patient has dense breast tissue. Dense breast tissue can make it harder to find cancer on a mammogram. Dense breast tissue is also associated with an incr eased risk of breast cancer. This information about the result of the mammogram report was provided to the patient to raise their awareness. Use this report when you speak with the patient about their risks for breast cancer, which includes their family history. At that time, you may recommend additional screening tests (Ultrasoun d or MRI) as these tests may add significant information. A negative radiographic report should not delay biopsy if a dominant or clinically suspicious mass is present. Up to ten percent of cancers are not identified on mammography. A negative report may reinforce clinical impression. Adenosis and dense breasts may obscure an underlying neoplasm. False positive reports average 6 to 10%. Patient will receive a letter notifying them of these results.
== END ==
PROVIDERS: PCP Nurse Practitioner; Visit Provider Nurse Practitioner
DX: Z12.31 Encounter for screening mammogram for malignant neoplasm of breast (principal); R92.8 Other abnormal and inconclusive findings on diagnostic imaging of breast
CPT/HCPCS: 77063; 77067

== ENCOUNTER → 2021-12-31 02:05 | Outpatient (CLI) | payer BC, SELFPAY ==
--- NOTE | 2021-12-31 | DI.US_ITS ---
Exam(s) MG MAMMO SCREEN CALL BACK UNI US BREAST RT LIMITED EXAM: MG MAMMO SCREEN CALL BACK UNI CLINICAL HISTORY: F/U MAMMO, INCREASING DENSITY SIZE RT. TECHNIQUE: MLO mammography view of the right breast with followed by Tomosynthesis and right breas t ultrasound. COMPARISON: US US BREAST RT COMPLETE from 08/06/2019 US US BREAST RT LIMITED from 11/18/2019 MG MG MAMMO DIAGNOSTIC BI from 11/18/2019 MG MG MAMMO SCREENING from 12/14/2021 FINDINGS: Mammography/Tomosynthesis: Patient states trauma to the superior right breast. Masses/Architectural Distortion: None seen. Dense tissue is noted in the superior right breast. Microcalcifictions: No suspicious pleomorphic-type are seen. Skin Thickening/Nipple Retraction: None. Right breast US: Echotexture: Normal appearance of the glandular tissue. Dense tissue superior right breast. No visi ble underlying mass. Shadowing: No suspicious foci. Cyst: None. Solid lesions: None seen. Ductal dilation: None. IMPRESSION: 1. No evidence of malignancy is noted. Increased density in the superior right breast could be second venus to trauma. Clinical correlation is recommended. 2. Unless there is more urgent need, follow-up screening mammography is recommended, as per [employer] guidelines. BI-RADS Category 2 - Benign Findings Breast Density - Category C - Heterogeneously dense A mammogram that demonstrates density of C or D indicates the patient's breast tissue is dense. Dense breast tissue is very common and is not abnormal, but dense breast tissue can make it harder to find cancer on a mammogram. Also, dense breast tissue may increase their breast cancer risk. This informa tion about the result of the mammogram report was provided to the patient to raise their awareness. U se this report when you speak with the patient about their risks for breast cancer, which includes th eir family history. At that time, you may recommend for more screening tests (Ultrasound or MRI) as t hey might be useful based on their risk. A negative radiographic report should not delay biopsy if a dominant or clinically suspicious mass is present. Up to ten percent of cancers are not identified on mammography. A negative report may reinforce clinical impression. Adenosis and dense breasts may obscure an underlying neoplasm. False positive reports average 6 to 10%. Patient will receive a letter notifying them of these results.
== END ==
PROVIDERS: PCP Nurse Practitioner; Visit Provider Nurse Practitioner
DX: Z12.31 Encounter for screening mammogram for malignant neoplasm of breast (principal); R92.8 Other abnormal and inconclusive findings on diagnostic imaging of breast; N60.81 Other benign mammary dysplasias of right breast
CPT/HCPCS: 76642; 77063; 77067

== ENCOUNTER 2022-07-12 01:49 | Outpatient (RCR) | payer BC, SELFPAY | END 2022-08-10 23:59 | disposition home or self-care (01) | LOC: INF 01:49 | PROVIDERS: PCP Nurse Practitioner; Visit Provider Nurse Practitioner | DX: G35 Multiple sclerosis (principal) | CPT/HCPCS: 96372; Q0221 ==

== ENCOUNTER 2023-01-14 03:10 | Outpatient (CLI) | payer BC, SELFPAY ==
[2023-01-14 08:07] LABS: Abs Immature Grans 0.02 10^3/uL (0.0-0.06); Absolute Eosinophil Count 0.41 10^3/uL (0.0-0.7); Absolute Monocyte Count 0.74 10^3/uL (0.1-0.8); Absolute Neutrophil Count 5.12 10^3/uL (1.2-6.7); Basophils % 1.3; Eosinophils % 5.4; HCT 36.7 % (36.0-46.0); Immature Grans % 0.3; Lymphocytes % 15.8; MCH 23.8 pg (27.0-33.0); MCV 79 fL (80-95); Monocytes % 9.7; Neutrophils % 67.5; Platelet Count 345 10^3/uL (130-400); RBC 4.63 10^6/uL (3.93-5.22); RDW 15.3 % (11.7-14.6); WBC 7.59 10^3/uL (4.4-10.8)
[2023-01-14 09:15] LABS: ALT 16 U/L (14-59); AST 15 U/L (15-37); Alkaline Phosphatase 54 U/L (46-116); Bilirubin, Direct 0.1 mg/dL (0.0-0.2); Bilirubin, Total 0.3 mg/dL (0.2-1.0); Total Protein 7.4 g/dL (6.4-8.2)
[2023-01-14 09:22] LABS: Vitamin B12 1934 pg/mL (193-986)
[2023-01-15 09:44] LABS: IgA 119 mg/dL (85-499); IgG 884 mg/dL (610-1616); IgM 81 mg/dL (35-242)
[2023-01-15 10:32] LABS: Lyme Ab w Rflx to Lyme Confirm Negative (Negative)
[2023-01-15 15:33] LABS: CD19 <1 % (6-24); CD20 <1 % (6-24)
[2023-01-17 15:03] LABS: Anaplasma phagocytophilum Negative (Negative); B. miyamotoi PCR Negative (Negative); Babesia divergens/MO-1 Negative (Negative); Babesia duncani Negative (Negative); Babesia microti Negative (Negative); Ehrlichia chaffeensis Negative (Negative); Ehrlichia ewingii/canis Negative (Negative); Ehrlichia muris eauclairensis Negative (Negative)
== END 2023-01-14 03:11 | disposition home or self-care (01) ==
PROVIDERS: Psychiatry & Neurology Neurology; PCP Nurse Practitioner; Visit Provider Nurse Practitioner
DX: R26.89 Other abnormalities of gait and mobility (principal); W57.XXXA Bitten or stung by nonvenomous insect and other nonvenomous arthropods, initial encounter; T14.8XXA Other injury of unspecified body region, initial encounter; G35 Multiple sclerosis; E53.8 Deficiency of other specified B group vitamins; D64.9 Anemia, unspecified
CPT/HCPCS: 36415; 80076; 82784; 87798; 88184; 88185; 82607; 85025; 86618

== ENCOUNTER 2024-01-30 01:48 | Outpatient (CLI) | payer BC, SELFPAY ==
[2024-01-30 13:22] LABS: Abs Immature Grans 0.01 10^3/uL (0.0-0.06); Absolute Basophil Count 0.07 10^3/uL (0.0-0.2); Absolute Eosinophil Count 0.21 10^3/uL (0.0-0.7); Absolute Lymphocyte Count 1.56 10^3/uL (1.2-3.4); Absolute Monocyte Count 0.65 10^3/uL (0.1-0.8); Absolute Neutrophil Count 4.13 10^3/uL (1.2-6.7); Basophils % 1.1 %; Eosinophils % 3.2 %; HCT 35.1 % (36.0-46.0); HGB 10.9 g/dL (11.2-15.7); Immature Grans % 0.2 %; Lymphocytes % 23.5 %; MCH 26.3 pg (27.0-33.0); MCHC 31.1 % (32.0-36.0); MCV 85 fL (80-95); MPV 9.6 fL (8.0-11.0); Monocytes % 9.8 %; Neutrophils % 62.2 %; Platelet Count 308 10^3/uL (130-400); RBC 4.15 10^6/uL (3.93-5.22); RDW 14.2 % (11.7-14.6); RDW-SD 44.2 fL; WBC 6.63 10^3/uL (4.4-10.8)
[2024-01-30 14:15] LABS: ALT 22 U/L (14-59); AST 17 U/L (15-37); Albumin 3.9 g/dL (3.4-5.0); Alkaline Phosphatase 48 U/L (46-116); Anion Gap 7.8 mmol/L (3-11); BUN 13 mg/dL (7-18); Bilirubin, Total 0.35 mg/dL (0.2-1.0); CO2 28.2 mmol/L (21.0-32.0); CREATININE 0.7 mg/dL (0.55-1.02); Chloride 103 mmol/L (98-107); Estimated GFR 111.36 (mL/min/1.73m2); Glucose 97 mg/dL (74-106); Potassium 3.9 mmol/L (3.5-5.1); Sodium 139 mmol/L (136-145); Total Protein 6.9 g/dL (6.4-8.2); Vitamin D 25 Total 61.6 ng/mL (30-100)
[2024-02-02 08:35] LABS: CD19 <1 % (6-24); CD20 <1 % (6-24)
[2024-02-02 09:47] LABS: IgA 100 mg/dL (85-499); IgG 771 mg/dL (610-1616); IgM 73 mg/dL (35-242)
== END 2024-01-30 01:49 | disposition home or self-care (01) ==
LOC: LBO 01:48
PROVIDERS: PCP Nurse Practitioner; Visit Provider Psychiatry & Neurology Neurology
DX: G35 Multiple sclerosis (principal)
CPT/HCPCS: 36415; 80053; 82306; 82784; 88184; 88185; 85025

== ENCOUNTER 2024-05-31 01:06 | Outpatient (CLI) | payer BC, SELFPAY ==
--- NOTE | 2024-05-31 08:00 | DI.MAMMO_ITS ---
Exam(s) MAMMO SCREENING EXAM: MAMMO SCREENING CLINICAL HISTORY: screening,Z12.39. TECHNIQUE: Bilateral full field digital CC and MLO mammographic images were obtained with 3D tomosyn thesis and utilizing computer aided detection (CAD). COMPARISON: Prior mammograms were reviewed. Prior ultrasound December 2021 also reviewed. FINDINGS: Again noted is asymmetric tissue in the superior aspect of the right breast which is increased from 2 020 but unchanged from most recent mammogram of December 2021. There are no new spiculated masses nor new malignant appearing microcalcification groups. There is no significant architectural distortion nor skin thickening-retraction. IMPRESSION: Stable benign-appearing findings. no radiographic evidence of malignancy. BI-RADS Category 2 - Benign Findings Breast Density - Category B - Scattered areas of fibroglandular density Breast density Category C or D implies that the patient has dense breast tissue. Dense breast tissue can make it harder to find cancer on a mammogram. Dense breast tissue is also associated with an incr eased risk of breast cancer. This information about the result of the mammogram report was provided to the patient to raise their awareness. Use this report when you speak with the patient about their risks for breast cancer, which includes their family history. At that time, you may recommend additional screening tests (Ultrasoun d or MRI) as these tests may add significant information. A negative radiographic report should not delay biopsy if a dominant or clinically suspicious mass is present. Up to ten percent of cancers are not identified on mammography. A negative report may reinforce clinical impression. Adenosis and dense breasts may obscure an underlying neoplasm. False positive reports average 6 to 10%. Patient will receive a letter notifying them of these results.
== END 2024-05-31 01:26 ==
LOC: DI 01:06
PROVIDERS: PCP Nurse Practitioner; Visit Provider Nurse Practitioner
DX: Z12.31 Encounter for screening mammogram for malignant neoplasm of breast (principal)
CPT/HCPCS: 77063; 77067

== ENCOUNTER 2024-12-24 08:39 | Outpatient (CLI) | payer BC, SELFPAY ==
[2024-12-24 14:13] LABS: NT-proBNP 27 pg/mL (<300)
[2024-12-24 14:15] LABS: ALT 16 U/L (14-59); AST 18 U/L (15-37); Albumin 4.1 g/dL (3.4-5.0); Alkaline Phosphatase 61 U/L (46-116); Anion Gap 7.4 mmol/L (3-11); BUN 12 mg/dL (7-18); Bilirubin, Total 0.3 mg/dL (0.2-1.0); CO2 28.6 mmol/L (21.0-32.0); CREATININE 0.8 mg/dL (0.55-1.02); Calcium 9.3 mg/dL (8.5-10.1); Chloride 103 mmol/L (98-107); Estimated GFR 94.28 (mL/min/1.73m2); Glucose 86 mg/dL (74-106); Potassium 3.5 mmol/L (3.5-5.1); Sodium 139 mmol/L (136-145); TSH 1.05 uIU/mL (0.36-3.74); Total Protein 7.2 g/dL (6.4-8.2)
[2024-12-24 23:13] LABS: FSH 9.1 mIU/mL (See Note); LH 2.3 mIU/mL (See Note)
== END 2024-12-24 08:40 | disposition home or self-care (01) ==
LOC: LBO 08:40
PROVIDERS: PCP Nurse Practitioner; Visit Provider Family Medicine
DX: R00.2 Palpitations (principal); R60.9 Edema, unspecified; N95.1 Menopausal and female climacteric states
CPT/HCPCS: 36415; 80053; 83001; 83002; 83880; 84443

== ENCOUNTER 2025-04-08 01:07 | Outpatient (CLI) | payer BC, SELFPAY ==
[2025-04-08 10:23] LABS: Abs Immature Grans 0.01 10^3/uL (0.0-0.06); HCT 37.5 % (36.0-46.0); HGB 11.8 g/dL (11.2-15.7); Immature Grans % 0.2 %; MCH 27.0 pg (27.0-33.0); MCHC 31.5 % (32.0-36.0); MCV 86 fL (80-95); MPV 10.0 fL (8.0-11.0); Platelet Count 313 10^3/uL (130-400); RBC 4.37 10^6/uL (3.93-5.22); RDW 14.5 % (11.7-14.6); RDW-SD 45.5 fL; WBC 6.12 10^3/uL (4.4-10.8)
[2025-04-11 13:20] LABS: TB Interpretation Negative (Negative); TB1 Ag minus Nil 0.02 IU/mL; TB2 Ag minus Nil 0.00 IU/mL
== END 2025-04-08 01:08 | disposition home or self-care (01) ==
LOC: LBO 01:07
PROVIDERS: PCP Nurse Practitioner; Visit Provider Psychiatry & Neurology Neurology
DX: G35 Multiple sclerosis (principal)
CPT/HCPCS: 36415; 82784; 85025; 86480

== ENCOUNTER 2025-04-13 13:00 | Outpatient (CLI) | payer BC, SELFPAY ==
[2025-04-14 16:17] LABS: CD19 <1 % (6-24); CD20 <1 % (6-24)
== END 2025-04-13 13:01 | disposition home or self-care (01) ==
LOC: LBO 13:00
PROVIDERS: PCP Nurse Practitioner; Visit Provider Psychiatry & Neurology Neurology
DX: G35 Multiple sclerosis (principal)
CPT/HCPCS: 36415; 88184; 88185

== ENCOUNTER 2025-05-27 04:10 | Outpatient (CLI) | payer BC, SELFPAY ==
[2025-05-27 08:57] LABS: Hemoglobin A1C 5.5 % (<5.7)
[2025-05-27 09:32] LABS: Calculated LDL 100 mg/dL (<100); Cholesterol 183 mg/dL (<200); HDL Cholesterol 64 mg/dL (>or=50); Triglyceride 98 mg/dL (<150); Vitamin B12 396 pg/mL (193-986)
== END 2025-05-27 04:11 | disposition home or self-care (01) ==
LOC: LBO 04:10
PROVIDERS: PCP Nurse Practitioner Family; Visit Provider Nurse Practitioner Family
DX: Z00.00 Encounter for general adult medical examination without abnormal findings (principal); E53.8 Deficiency of other specified B group vitamins
CPT/HCPCS: 36415; 80061; 82607; 83036

== ENCOUNTER 2025-06-02 03:39 | Outpatient (CLI) | payer BC, SELFPAY ==
--- NOTE | 2025-06-02 06:30 | DI.MAMMO_ITS ---
Exam(s) MAMMO SCREENING EXAM: MAMMO SCREENING CLINICAL HISTORY: screening,z12.39 TECHNIQUE: Bilateral full field digital CC and MLO mammographic images were obtained with 3D tomosynthesis and utilizing computer aided detection (CAD). COMPARISON: Comparison is made with prior examinations. FINDINGS: Masses/Architectural Distortion: No suspicious masses or areas of architectural distortion are present. Microcalcifications: No suspicious pleomorphic-type are seen. Skin Thickening/Nipple Retraction: None. IMPRESSION: 1. No significant interval change with no specific features of malignancy noted. 2. Unless there is more urgent need, screening mammography is recommended, as per [place] [employer] guidelines. BI-RADS Category 1 - Negative Breast Density - Category C - The breast are heterogeneously dense, which may obscure small masses. Breast density Category C or D implies that the patient has dense breast tissue. Dense breast tissue can make it harder to find cancer on a mammogram. Dense breast tissue is also associated with an increased risk of breast cancer. This information about the result of the mammogram report was provided to the patient to raise their awareness. Use this report when you speak with the patient about their risks for breast cancer, which includes their family history. At that time, you may recommend additional screening tests (Ultrasound or MRI) as these tests may add significant information. A negative radiographic report should not delay biopsy if a dominant or clinically suspicious mass is present. Up to ten percent of cancers are not identified on mammography. A negative report may reinforce clinical impression. Adenosis and dense breasts may obscure an underlying neoplasm. False positive reports average 6 to 10%. Patient will receive a letter notifying them of these results.
== END 2025-06-02 03:59 ==
LOC: DI 03:39
PROVIDERS: PCP Nurse Practitioner Family; Visit Provider Nurse Practitioner Family
DX: Z12.31 Encounter for screening mammogram for malignant neoplasm of breast (principal)
CPT/HCPCS: 77063; 77067

== ENCOUNTER 2025-08-05 08:49 | Outpatient (REF) | payer BC, SELFPAY | END 2025-08-05 08:50 | disposition home or self-care (01) | LOC: LBN 08:49 | PROVIDERS: PCP Nurse Practitioner Family; Visit Provider Nurse Practitioner Family | DX: Z12.4 Encounter for screening for malignant neoplasm of cervix (principal) | CPT/HCPCS: 88142; 87624 ==